=== PATIENT | female | born 1975 | race Two or more races ===

== ENCOUNTER 2019-06-04 08:59 | Emergency (ER) | payer MEDICAID, OTHER ==
[~2019-06-04] VITALS: Ht 167.6 cm; Wt 97.5 kg
[2019-06-04 10:55] VITALS: BP 133/75
== END 2019-06-04 12:23 | disposition home or self-care (01) ==
LOC: ER 09:16
DX: S09.90XA Unspecified injury of head, initial encounter (principal); R42 Dizziness and giddiness; W19.XXXA Unspecified fall, initial encounter; Y93.89 Activity, other specified; Y92.89 Other specified places as the place of occurrence of the external cause; Y99.8 Other external cause status
CPT/HCPCS: 70450

== ENCOUNTER 2020-07-21 15:20 | Emergency (ER) | payer MEDICAID ==
[~2020-07-21] VITALS: Ht 167.6 cm; Wt 81.6 kg
[2020-07-21 15:31] VITALS: BP 156/50
[2020-07-21] MEDS ORDERED: FERROUS SULFATE 325 MG TAB PO ONE (15:45)
[2020-07-21 16:14] LABS: Basophils # (auto) 0.1 10 ^3/uL (0-0.2); Basophils % (auto) 1.2 % (0.0-2.0); Eosinophils # (auto) 0.1 10 ^3/uL (0-0.8); Monocytes # (auto) 0.4 10 ^3/uL (0-1.3); Nucleated Red Blood Cells % 0.1 %
[2020-07-21 16:16] LABS: Hematocrit 26.2 % (36.0-46.0); Hemoglobin 7.7 g/dL (12.2-16.2); Lymphocytes # (auto) 1.5 10 ^3/uL (0.4-5.4); Lymphocytes % (auto) 19.3 % (10.0-50.0); Mean Corpuscular Hemoglobin 18.5 pg (28.0-32.0); Mean Corpuscular Hgb Conc. 29.2 g/dL (32.0-36.0); Mean Corpuscular Volume 63.5 fL (80.0-100.0); Monocytes % (auto) 4.7 % (0.0-12.0); Neutrophils # (auto) 5.5 10 ^3/uL (1.6-8.6); Neutrophils % (auto) 72.8 % (37.0-80.0); Platelet Count (auto) 297 10^3/uL (140-450); Red Blood Cells 4.13 10^6/uL (4.0-5.20); Red Cell Distribution Width 18.9 % (11.8-14.3); White Blood Cell 7.5 10^3/uL (4.4-10.8)
[2020-07-21 16:21] LABS: Albumin 3.4 g/dL (3.4-5.0); Calcium 8.9 mg/dL (8.5-10.1); Potassium 3.3 mmol/L (3.5-5.1)
[2020-07-21 16:25] LABS: BUN/Creatinine Ratio 15.8; Bilirubin, Total 0.8 mg/dL (0.2-1.0); Total Protein 7.7 g/dL (6.4-8.2)
[2020-07-21] MEDS ORDERED: IOHEXOL 350 MG/ML 100ML IJ ONE (22:04)
[2020-07-22] MEDS ORDERED: POTASSIUM EFFERVESENT TAB 25 MEQ PO ONE (06:45)
== END 2020-07-22 06:40 | disposition left against medical advice (07) ==
LOC: ER 15:20
DX: D64.9 Anemia, unspecified (principal); I10 Essential (primary) hypertension
CPT/HCPCS: 36415; 80053; 85025; 86850; 86900; 86901

== ENCOUNTER 2020-09-04 11:54 | Emergency (ER) | payer MEDICAID ==
[~2020-09-04] VITALS: Ht 167.6 cm; Wt 83.9 kg
[2020-09-04 13:25] LABS: Basophils # (auto) 0.1 10 ^3/uL (0-0.2); Eosinophils # (auto) 0.2 10 ^3/uL (0-0.8); Hemoglobin 7.8 g/dL (12.2-16.2); Lymphocytes # (auto) 1.8 10 ^3/uL (0.4-5.4); Neutrophils # (auto) 4.4 10 ^3/uL (1.6-8.6); Nucleated Red Blood Cells % 0.1 %
[2020-09-04 13:27] LABS: Basophils % (auto) 1.3 % (0.0-2.0); Eosinophils % (auto) 2.7 % (0.0-7.0); Hematocrit 26.1 % (36.0-46.0); Lymphocytes % (auto) 26.1 % (10.0-50.0); Mean Corpuscular Hemoglobin 18.9 pg (28.0-32.0); Mean Corpuscular Hgb Conc. 29.8 g/dL (32.0-36.0); Mean Corpuscular Volume 63.3 fL (80.0-100.0); Monocytes # (auto) 0.4 10 ^3/uL (0-1.3); Monocytes % (auto) 5.4 % (0.0-12.0); Neutrophils % (auto) 64.5 % (37.0-80.0); Red Blood Cells 4.13 10^6/uL (4.0-5.20); Red Cell Distribution Width 19.2 % (11.8-14.3); White Blood Cell 6.9 10^3/uL (4.4-10.8)
[2020-09-04 13:39] LABS: Albumin 3.2 g/dL (3.4-5.0); BUN/Creatinine Ratio 14.6; Calcium 8.5 mg/dL (8.5-10.1); INR 0.92 (0.9-1.15); Partial Thromboplastin Time 21.4 sec (23.0-31.2); Potassium 4.1 mmol/L (3.5-5.1)
[2020-09-04 13:42] LABS: Bilirubin, Total 0.8 mg/dL (0.2-1.0); Total Protein 7.4 g/dL (6.4-8.2)
[2020-09-04 16:54] VITALS: BP 142/67
[2020-09-04 17:09] VITALS: BP 145/76
[2020-09-04 17:24] VITALS: BP 132/81
[2020-09-04 17:45] VITALS: BP 146/75
[2020-09-04 19:25] VITALS: BP 146/90
== END 2020-09-04 19:48 | disposition home or self-care (01) ==
LOC: ER 11:54
DX: D64.9 Anemia, unspecified (principal); N93.9 Abnormal uterine and vaginal bleeding, unspecified; D21.9 Benign neoplasm of connective and other soft tissue, unspecified; I10 Essential (primary) hypertension; F17.210 Nicotine dependence, cigarettes, uncomplicated; Z98.51 Tubal ligation status
CPT/HCPCS: 36415; 36430; 76830; 76856; 80053; 85025; 85610; 85730; 86850; 86900; 86901; 86920; 99285; P9016

== ENCOUNTER 2022-03-03 19:39 | Emergency (ER) | payer MEDICAID ==
[~2022-03-03] VITALS: Ht 167.6 cm; Wt 92.0 kg
[2022-03-03 22:45] LABS: Basophils # (auto) 0.1 10 ^3/uL (0-0.2); Basophils % (auto) 1.3 % (0.0-2.0); Eosinophils # (auto) 0.5 10 ^3/uL (0-0.8); Eosinophils % (auto) 5.9 % (0.0-7.0); Hematocrit 32.2 % (36.0-46.0); Hemoglobin 9.1 g/dL (12.2-16.2); Lymphocytes % (auto) 24.1 % (10.0-50.0); Mean Corpuscular Hemoglobin 18.9 pg (28.0-32.0); Mean Corpuscular Hgb Conc. 28.2 g/dL (32.0-36.0); Monocytes # (auto) 0.5 10 ^3/uL (0-1.3); Monocytes % (auto) 6.1 % (0.0-12.0); Neutrophils # (auto) 5.2 10 ^3/uL (1.6-8.6); Neutrophils % (auto) 62.6 % (37.0-80.0); Nucleated Red Blood Cells % 0.2 %; White Blood Cell 8.3 10^3/uL (4.4-10.8)
[2022-03-03 23:07] LABS: Potassium 3.7 mmol/L (3.5-5.1)
[2022-03-03 23:09] LABS: Albumin 3.4 g/dL (3.4-5.0); BUN/Creatinine Ratio 15.9; Calcium 8.2 mg/dL (8.5-10.1); Magnesium 2.7 mg/dL (1.6-2.6)
[2022-03-03 23:13] LABS: Bilirubin, Total 0.5 mg/dL (0.2-1.0); Total Protein 7.4 g/dL (6.4-8.2)
[2022-03-04 07:20] VITALS: BP 132/64
== END 2022-03-04 07:24 | disposition home or self-care (01) ==
LOC: ER 19:39
DX: N93.9 Abnormal uterine and vaginal bleeding, unspecified (principal); D64.9 Anemia, unspecified; I10 Essential (primary) hypertension; E11.9 Type 2 diabetes mellitus without complications; F17.210 Nicotine dependence, cigarettes, uncomplicated
CPT/HCPCS: 36415; 71045; 80053; 83735; 83880; 84443; 84484; 85025; 93005